=== PATIENT | female | born 1960 | race Caucasian/White ===

== ENCOUNTER → 2022-03-03 10:59 | Outpatient (POV) | payer BC, SELFPAY ==
--- NOTE | 2022-03-03 11:22 | EXP.PAIN.OV ---
HPI Data of Consult Patient: new to practice Consult date: 03/03/22 Requesting Physician: Sunitha Hill APRN Consult Narrative Reason for consult: Back pain History of present illness: Ms. Florian is a 61 year old female who presents today as a new patient. She is a referral from Adams Taylor's office. Today she rates her pain an 8 out of 10. Patient states the pain is only in her low back and denies any radiating symptoms. Patient states this has been going on for years however it is progressively worsened over the last 6 months. Patient states she has pain more prominent along her left side. Patient describes this as a aching, throbbing sensation that constantly causes pain symptoms. Patient states she does have more issues while bending and lifting. 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 Patient has tried [id number] Advil that does provide some improvement of her symptoms. Patient also states she uses a heating pad and ice which provides temporary relief. Patient has been to physical therapy in the past and this did provide some improvement of her symptoms. Patient does state that she has a history of rotator cuff repair in her right shoulder. Patient has been seen by neurosurgery who stated that she was not a surgical candidate. Patient does not have any history of injective therapy. Her Rafat is [id number]. It has been reviewed and appropriate. CC: Sunitha Hill APRN [facility] Disclaimer: The information contained in this section may have been updated after the patient was seen, as this information can be updated by other users. Medical History (Updated 03/03/22 @ 12:51 by Sunitha Hill APRN) Carpal tunnel syndrome on both sides Depression HLD (hyperlipidemia) HTN (hypertension) Rotator cuff arthropathy of right shoulder Surgical History (Updated 03/03/22 @ 11:28 by Nica Wade RN) History of tonsillectomy Hx of cholecystectomy Social History (Updated 03/03/22 @ 11:29 by Nica Wade RN) Smoking Status: Never smoker alcohol intake: never current occupational status: employed Travel in the last 8 weeks: None Review of Systems Review of Systems Review of systems:: pertinent systems reviewed and negative unless documented below Review of systems (narrative): Review of Systems: General: No recent weight changes, no fever, no sleep disturbances Respiratory: No cough, no shortness of air, no recurring pulmonary infections Cardiovascular/peripheral vascular: No chest pain, no palpitations, no edema, no shortness of breath Gastrointestinal: No new onset incontinence, normal bowel movements reported Genitourinary: No new onset incontinence Musculoskeletal: Back pain Psychiatric: [Normal mood/affect] Neurological: [Denies weakness in extremities], [denies balance issues] Meds Home Medications and Allergies Home Medications Medication Instructions Recorded Confirmed Type amlodipine 5 mg tablet 5 mg PO DAILY BLOOD PRESSURE 03/03/22 03/03/22 History atorvastatin 80 mg tablet 80 mg PO DAILY Cholesterol 03/03/22 03/03/22 History carvedilol 6.25 mg tablet 6.25 mg PO BID BLOOD PRESSURE 03/03/22 03/03/22 History cyclobenzaprine 5 mg tablet 5 mg PO DAILY MUSCLES 03/03/22 03/03/22 History fluticasone propionate 50 50 mcg intranasal NEEDED PRN 03/03/22 03/03/22 History mcg/actuation nasal ALLERGIES spray,suspension glycopyrrolate 1 mg tablet 1 mg PO DAILY STOMACH 03/03/22 03/03/22 History hydroxyzine pamoate 25 mg capsule 25 mg PO BID MOOD 03/03/22 03/03/22 History levocetirizine 5 mg tablet 5 mg PO DAILY ALLERGIES 03/03/22 03/03/22 History meloxicam 7.5 mg tablet 7.5 mg PO DAILY Pain 03/03/22 03/03/22 History methenamine hippurate 1 gram tablet 0.5 g PO BID BLADDER 03/03/22 03/03/22 History paroxetine HCl 30 mg tablet 30 mg PO DAILY MOOD 03/03/22 03/03/22 Histo
[2022-03-03 11:23] VITALS: BP 123/45; PULSE 78; RESP 18; O2SAT 95; BMI 31.0
== END ==
PROVIDERS: Visit Provider Nurse Practitioner Family
DX: M51.36 Other intervertebral disc degeneration, lumbar region (principal); M47.816 Spondylosis without myelopathy or radiculopathy, lumbar region; Z79.899 Other long term (current) drug therapy
CPT/HCPCS: 99202; G0463

== ENCOUNTER 2022-03-28 10:42 | Day surgery (SDC) | payer BC, SELFPAY ==
[2022-03-28 11:00] VITALS: BP 119/64; PULSE 80; RESP 20; TEMP 36.5; O2SAT 99; BMI 30.5
[2022-03-28 11:01] VITALS: BP 117/60; PULSE 78; RESP 18; O2SAT 97
[2022-03-28 11:03] VITALS: BP 117/60; PULSE 78; RESP 18; O2SAT 97
--- NOTE | 2022-03-28 11:05 | P.PCN_ITS ---
Procedure Date: 03/28/22 Time: 11:00 Anesthesiologist:: Eben Browne CRNA Complications:: None Pre-procedure Diagnosis:: Degenerative disc disease lumbar spine multilevels. Lumbar radiculopathy. Lumbar spondylosis. Multilevel lumbar facet arthropathy Post-procedure Diagnosis:: Same Indications for Procedure:: Very pleasant 61-year-old female that comes our clinic today for medial branch block/facet block injections L3-4, L4-5 bilaterally. Patient has low back pain she describes as constant, dull and aching. She rates her pain 7/10. Patient reports pain increases with flexion and/or extension, left or right rotation. Pain increases when standing for any length of time. Sitting for any length of time. Procedure Details:: Informed consent was obtained and the risk and benefits of the procedure was explained to the patient. Patient was taken to the procedure room where noninvasive monitors were placed, including noninvasive blood pressure cuff as well as pulse oximeter. The area over the lumbar spine was cleansed using ch lorhexidine as a cleansing solution. I anesthetized the skin and subcutaneous tissues with 1% Lidocaine. I placed 22-gauge spinal needles into the facet joint/ medial branches of, L3-4, L4-5 bilaterally. Needle placement was confirmed with fluoroscopy. After confirmation of needle placement, each site was injected with 1 mL of 1% lidocaine and 0.25 % Marcaine and 10 mg of Depo- Medrol. A total of 80 mg of depo medrol was used for bilateral medial branch blocks of L3-4, L4-5 bilaterally. Patient tolerated the procedure without difficulty. There were no complications. Plan and Disposition:: Patient was discharged without incident.
[2022-03-28 11:22] VITALS: BP 127/71; PULSE 73; RESP 20; O2SAT 96
== END 2022-03-28 11:23 | disposition home or self-care (01) ==
PROVIDERS: Visit Provider Nurse Anesthetist, Certified Registered
DX: M51.16 Intervertebral disc disorders with radiculopathy, lumbar region (principal); M47.26 Other spondylosis with radiculopathy, lumbar region
CPT/HCPCS: 64493; 64494; J1040

== ENCOUNTER → 2022-04-14 11:00 | Outpatient (POV) | payer BC, SELFPAY ==
[2022-04-14 11:07] VITALS: BP 122/44; PULSE 80; RESP 18; O2SAT 97; BMI 30.5
--- NOTE | 2022-04-14 11:14 | A.OFFVIS_ITS ---
[facility] Pain Management SOAP Note Subjective:: Ms. Florian is a 61-year-old female who presents today for follow-up after having a medial branch block/facet block injections L3-4, L4-5 bilaterally. Pt has degenerative disc disease lumbar spine multilevels, lumbar radiculopathy, lumbar spondylosis, low back pain. Today patient rates her pain a 0 out of 10. Patient states that she received about 90% improvement however she does state that she does have sometimes have sharp stabbing pain that radiates to her left leg. Patient states that she uses a heating pad and ice which provides temporary relief. Patient has been to physical therapy in the past and she did see some improvement of her symptoms. Patient does state that she has a history of rotator cuff repair in her right shoulder. Patient has been seen by neurosurgery who stated that she was not a Surgical candidate. Patient's Rafat #[id number] was reviewed and is appropriate. Review of Systems: General: No recent weight changes, no fever, no sleep disturbances Respiratory: No cough, no shortness of air, no recurring pulmonary infections Cardiovascular/peripheral vascular: No chest pain, no palpitations, no edema, no shortness of breath Gastrointestinal: No new onset incontinence, normal bowel movements reported Genitourinary: No new onset incontinence Musculoskeletal: Back pain, left leg pain Psychiatric: [Normal mood/affect] Neurological: [Denies weakness in extremities], [denies balance issues] Objective:: Physical Exam: General: Alert and oriented x3, no acute distress, pleasant and cooperative Lungs: Respirations even and unlabored, symmetrical chest expansion Eyes: PERRL Musculoskeletal: Flexion and extension of lumbar [spine] somewhat guarded secondary to pain, [antalgic gait noted] Neurological: Speech clear, no gross sensory deficit ORT updated with low risk. Assessment:: Degenerative disc disease lumbar spine with lumbar facet arthropathy, lumbar spondylosis, low back pain Plan:: Patient has had significant improvement following her medial branch block and does not require any additional injective therapy at this time. Patient will follow-up via telehealth in 1 month for reevaluation of symptoms and follow-up. Patient has been instructed to contact the clinic with any concerns before the next appointment. Dr. Rodriguez has reviewed this note and agrees with this plan of care. This note was dictated using voice recognition software and make contain errors or omissions. [facility] Disclaimer: The information contained in this section may have been updated after the patient was seen, as this information can be updated by other users. Medical History Carpal tunnel syndrome on both sides Depression HLD (hyperlipidemia) HTN (hypertension) Rotator cuff arthropathy of right shoulder Surgical History History of tonsillectomy Hx of cholecystectomy Family History (Updated 03/28/22 @ 10:58 by Taylor Deleon RN) Other No significant family history Social History Smoking Status: Never smoker alcohol intake: never current occupational status: retired Travel in the last 8 weeks: None
== END ==
PROVIDERS: Visit Provider Nurse Practitioner Family
DX: M51.36 Other intervertebral disc degeneration, lumbar region (principal); M47.816 Spondylosis without myelopathy or radiculopathy, lumbar region
CPT/HCPCS: 99212; G0463

== ENCOUNTER → 2022-05-19 11:40 | Outpatient (POV) | payer BC, SELFPAY ==
--- NOTE | 2022-05-19 12:25 | EXP.PAIN.SOA ---
[facility] Pain Management SOAP Note Subjective:: Patient is a pleasant 61-year-old female who presents today for virtual telehealth visit. 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 We are currently treating the patient for degenerative disc disease of lumbar spine with lumbar radiculopathy symptoms, lumbar spondylosis, low back pain. Today she rates her pain a 1 out of 10. Patient denies any new trauma or injury. Patient denies any change location or type of pain she experiences. Patient previously had a medial branch block bilaterally of L3-L4 and L4-L5 on 03/28/2022. Patient states she continues to have relief following this injection. Patient states she has had at least 90% improvement. Patient prior had to use heat and ice for additional relief however she states at today's visit she has not even needed to do these. Patient has had physical therapy in the past that did provide significant improvement. Patient has also been to a neurosurgeon who stated she was not a surgical candidate. Patient is prescribed Ambien 10 mg daily from an outside provider. Patient denies any side effects from this medication. Her Rafat is [id number]. Its been reviewed and appropriate. Review of Systems: General: No recent weight changes, no fever, no sleep disturbances Respiratory: No cough, no shortness of air, no recurring pulmonary infections Cardiovascular/peripheral vascular: No chest pain, no palpitations, no edema, no shortness of breath Gastrointestinal: No new onset incontinence, normal bowel movements reported Genitourinary: No new onset incontinence Musculoskeletal: Low back pain Psychiatric: [Normal mood/affect] Neurological: [Denies weakness in extremities], [denies balance issues] Objective:: General: Alert and oriented x3, pleasant and cooperative Lungs: Patient is able to say complete sentences without dyspnea Neurological: Speech clear Assessment:: Degenerative disc disease of lumbar spine multilevels with lumbar radiculopathy symptoms, lumbar spondylosis, low back pain Plan:: Patient has still been experiencing significant relief following her medial branch block from February. At this time she does not require any additional injective therapy. I have discussed with the patient to contact our office when she starts having more prominent pain on a regular basis and that we can do a repeat medial branch block injection with the plan to proceed forward with a RFA in the future. Patient will return to clinic in 3 months for reevaluation of symptoms and plan of care. Patient has been instructed to contact the clinic with any concerns before the next appointment. Dr. Rodriguez has reviewed this note and agrees with this plan of care. This note was dictated using voice recognition software and make contain errors or omissions. [facility] Disclaimer: The information contained in this section may have been updated after the patient was seen, as this information can be updated by other users. Medical History Carpal tunnel syndrome on both sides Depression HLD (hyperlipidemia) HTN (hypertension) Rotator cuff arthropathy of right shoulder Surgical History History of tonsillectomy Hx of cholecystectomy Family History (Updated 03/28/22 @ 10:58 by Taylor Deleon RN) Other No significant family history Social History Smoking Status: Never smoker alcohol intake: never current occupational status: retired Travel in the last 8 weeks: None
== END ==
PROVIDERS: Visit Provider Nurse Practitioner Family
DX: M51.16 Intervertebral disc disorders with radiculopathy, lumbar region (principal); M47.26 Other spondylosis with radiculopathy, lumbar region
CPT/HCPCS: 99212; G0463